=== PATIENT | male | born 1955 | race Caucasian/White ===

== ENCOUNTER → 2019-08-07 14:32 | Outpatient (CLI) | payer OTHER, SELFPAY ==
[2019-08-08 03:13] LABS: COVID19 Sendout Not Detected (Not Detect)
== END ==
PROVIDERS: Family Provider Family Medicine; PCP Family Medicine; Visit Provider Physician Assistant
DX: Z01.812 Encounter for preprocedural laboratory examination (principal)
CPT/HCPCS: 87635

== ENCOUNTER 2019-08-10 11:28 | Day surgery (SDC) | payer MEDICARE, OTHER, SELFPAY ==
[2019-08-10 12:13] VITALS: BP 145/90; PULSE 91; RESP 18; TEMP 36.8; O2SAT 95; BMI 44.2
[2019-08-10] MEDS: LACTATED RINGERS 1,000 ML 42 ML IV (12:13)
--- NOTE | 2019-08-10 12:23 | PM.PREOP ---
Pre-operative Note COVID-19 COVID-19 status: Negative Result date/Date tested (Pos, Neg/Pending): 08/07/19 Interval Note History & Physical reviewed/Exam performed by Physician: Yes Changes to H&P: No
[2019-08-10 13:20] VITALS: BP 152/89; PULSE 80; RESP 12; TEMP 36.7; O2SAT 94
--- NOTE | 2019-08-10 13:20 | PM.OP.ENDO ---
Operative Date/Time/Diagnoses Date of procedure: 08/10/19 Time of procedure: 13:21 Pre-op diagnosis: Medical high risk for colonoscopy due to morbid obesity and obstructive sleep apnea Post-op diagnosis: same (Plus diverticulosis) Procedure & Clinicians Study performed: Screening Colonoscopy Same procedure as scheduled: Yes Indications: Never had a colonoscopy, about to start prostate cancer treatment, needs to rule out colon polyps or cancers. This patient was deemed to be medically high risk for procedural sedation due to his morbid obesity and obstructive sleep apnea. Therefore we have consulted our anesthesiologist Dr. Lewis to provide monitored anesthesia care during his procedure. Surgeon: Yanely Rich Procedure Notes SCOAP/Timeout: Performed Procedure in detail: The patient was brought to the room and placed in left lateral decubitus position with all bony prominences padded. A time-out was performed and then the patient was given procedural sedation and closely monitored by Dr. Lewis. Vitals were monitored throughout the procedure and remained stable. Once adequately sedated, the procedure was begun. A rectal exam was performed revealing no abnormalities. The colonoscope was then introduced to the rectum and advanced to the cecum in the usual fashion. The cecum was identified by the appendiceal orifice, the mucosal tri-fold, and the ileocecal valve. The scope was then retracted while rotating side to side and examining each mucosal fold. Low-grade diverticulosis was seen in the left side of the colon. No other abnormalities were noted. At the conclusion of the procedure retroflexion was performed and moderate grade 1-2 internal hemorrhoids without stigmata of bleeding were seen. The scope was then withdrawn from the rectum the procedure was concluded. The patient tolerated the procedure well and was transferred to the PACU in stable condition. Scope withdrawal time: 7 Findings: diverticulosis Specimen(s): none sent Complications: none Impression: Low-grade diverticulosis Post-procedure Recommendations: Colonscopy in 10 years Follow up: as needed Disposition: PACU
--- NOTE | 2019-08-10 13:28 | SUR.PHASEII ---
Patient arrived from OR awake. Denied pain. VS stable.
[2019-08-10 13:40] VITALS: BP 152/93; PULSE 79; RESP 20; TEMP 36.7; O2SAT 93
== END 2019-08-10 14:16 | disposition home or self-care (01) ==
PROVIDERS: Family Provider Family Medicine; PCP Family Medicine; Referring Provider Surgery; Visit Provider Surgery
PROC: 0DJD8ZZ Inspection of Lower Intestinal Tract, Via Natural or Artificial Opening Endoscopic (ICD-10-PCS; CPT 45378; principal; 2019-08-10 12:45)
DX: Z12.11 Encounter for screening for malignant neoplasm of colon (principal); C61 Malignant neoplasm of prostate; E66.01 Morbid (severe) obesity due to excess calories; G47.33 Obstructive sleep apnea (adult) (pediatric); Z68.42 Body mass index [BMI] 45.0-49.9, adult; K64.0 First degree hemorrhoids; K57.30 Diverticulosis of large intestine without perforation or abscess without bleeding; R73.03 Prediabetes; K21.9 Gastro-esophageal reflux disease without esophagitis
CPT/HCPCS: G0105; J2250; J2704; J3010

== ENCOUNTER → 2019-10-24 13:53 | Outpatient (CLI) | payer MEDICARE, OTHER, SELFPAY ==
[2019-10-25 20:03] LABS: COVID19 Sendout Not Detected (Not Detect)
== END ==
PROVIDERS: Family Provider Family Medicine; PCP Family Medicine; Visit Provider Physician Assistant
DX: Z11.59 Encounter for screening for other viral diseases (principal)
CPT/HCPCS: 87635

== ENCOUNTER 2019-12-09 15:43 | Emergency (ER) | payer MEDICARE, OTHER, SELFPAY ==
[2019-12-09] VITALS (10 sets, daily range): BP systolic 192–219; BP diastolic 88–107; PULSE 86–110; RESP 24–26; TEMP 37.2; O2SAT 91–97; BMI 46.0
--- NOTE | 2019-12-09 16:07 | DI.RAD.S_ITS ---
PROCEDURE: XR CHEST 1V INDICATIONS: Fever on chemo eval for pneumonia TECHNIQUE: One view of the chest was acquired. COMPARISON: None. FINDINGS: Surgical changes and devices: None. Lungs and pleura: Lungs are clear. No pleural effusions or pneumothorax. Mediastinum: Mediastinal contours appear normal. Heart size is normal. Bones and chest wall: No suspicious bony lesions. Overlying soft tissues appear unremarkable. IMPRESSION: No pneumonia found. Dictated by: Jose So M.D. on 12/09/2019 at 16:22 Approved by: Jose So M.D. on 12/09/2019 at 16:22
[2019-12-09 16:18] LABS: Add Manual Diff / Slide Review NO; Basophils Absolute Auto 0 /uL (0-100); Basophils Percent Auto 0.2 % (0-2); Eosinophils Absolute Auto 0 /uL (0-450); Eosinophils Percent Auto 0.1 % (2-4); Hematocrit 41.9 % (41-53); Hemoglobin 14.6 g/dL (13.5-17.5); Lymphocytes Absolute Auto 300 /uL (1100-4500); Mean Corpuscular HGB Conc 34.9 % (30-36); Mean Corpuscular Hemoglobin 31.1 PG (26-34); Monocytes Absolute Auto 800 /uL (0-900); Monocytes Percent Auto 6.1 % (3-14); Neutrophils Absolute Auto 12800 /uL (1500-7000); Neutrophils Percent Auto 91.6 % (50-75); Platelet Count 251 X10^3/uL (150-400); Red Blood Cell Count 4.71 X10^6/uL (4.5-5.9); Red Cell Distribution Width 13.7 % (11.6-14.8)
[2019-12-09 16:25] LABS: Alanine Aminotransferase 24 IU/L (<50); Albumin 4.3 g/dL (3.5-5.0); Albumin Globulin Ratio 1.3 (1.0-2.8); Alkaline Phosphatase 110 U/L (38-126); Aspartate Aminotransferase 30 IU/L (17-59); BUN Creatinine Ratio 17.9 (6-22); Bilirubin Total 0.7 mg/dL (0.2-1.3); Blood Urea Nitrogen 14 mg/dL (9-20); Calcium 8.9 mg/dL (8.4-10.2); Carbon Dioxide 30 mmol/L (22-32); Chloride 101 mmol/L (98-107); Estimated Glomerular Filt Rate > 60.0 mL/min (>60); Globulin 3.3 g/dL (1.7-4.1); Glucose 132 mg/dL (80-110); HEMOLYSIS < 15 (0-50); Lipase 45 U/L (23-300); Potassium 3.8 mmol/L (3.4-5.1); Sodium 136 mmol/L (137-145); Total Protein 7.6 g/dL (6.3-8.2)
[2019-12-09] MEDS: SODIUM CHLORIDE 0.9% 1,000 ML 1000 ML IV (16:30)
[2019-12-09] MEDS: CEFEPIME 2 GM in SODIUM CHLORIDE 0.9% 100 ML 200 ML IV (16:30)
--- NOTE | 2019-12-09 16:48 | ED.GENADULT ---
HPI - General Adult General Chief complaint: Fever Stated complaint: MIGHT HAVE COVID FEVER Time Seen by Provider: 12/09/19 16:05 Source: patient Mode of arrival: Ambulatory Limitations: no limitations History of Present Illness HPI narrative: Patient is a 64-year-old male. Current medical issue of prostate cancer. He is receiving proton therapy at [facility]. His oncologist is Dr. Garcia. Patient states he had a proton therapy this morning. His he was driving home he was feeling well until he got approximately 30 minutes from home when he states he had a fairly sudden onset of not feeling well and redness of his skin. Patient was concerned that potentially he had COVID-19 as a family member of his ?rarely wears a mask he denies any fevers. No headache. He does have some right-sided sinus congestion with is not new for him. No cough. Does have a dry throat. No abdominal pain. No rashes. Related Data Home Medications Medication Instructions Recorded Confirmed fluticasone propionate 50 1 spray NASAL DAILY 08/26/17 08/10/19 mcg/actuation nasal spray,suspension trazodone 50 mg tablet 50 mg PO DAILY 08/26/17 08/10/19 Allergies Allergy/AdvReac Type Severity Reaction Status Date / Time No Known Drug Allergies Allergy Verified 12/09/19 16:02 Review of Systems Constitutional Constitutional: Reports chills and Denies headache(s) Eyes Eyes: Denies change in vision ENT Ears, Nose, Mouth, and Throat: Denies headache(s), Reports sinus pressure and Reports sore throat Cardiovascular Cardiovascular: Denies chest pain and Denies dyspnea Respiratory Respiratory: Denies cough and Denies dyspnea Gastrointestinal Gastrointestinal: Denies abdominal pain, Denies nausea and Denies vomiting Genitourinary Genitourinary: Denies dysuria Genitourinary: Denies dysuria Musculoskeletal Musculoskeletal: Denies arthralgias and Denies myalgias Integumentary/Breasts Skin/Breast: Denies rash Neurologic Neurologic: Denies behavioral changes and Denies headache(s) Psychiatric Psychiatric: Denies behavioral changes Hematologic/Lymphatic Hematologic/Lymphatic: Denies easy bleeding and Denies easy bruising Allergic/Immunologic Allergic/Immunologic: Denies urticaria Patient History Medical History Allergic rhinitis (Chronic) Colon cancer screening (Inactive) GERD (gastroesophageal reflux disease) (Chronic) Impaired fasting glucose (Acute) Insomnia, unspecified (Inactive) Morbid obesity with BMI of 45.0-49.9, adult (Chronic) Obstructive sleep apnea of adult (Chronic) Peptic ulcer disease (Inactive) Snoring (Inactive) Surgical History (Updated 08/02/19 @ 10:03 by Yanely Rich MD) History of hemorrhoidectomy (Inactive) History of inguinal hernia repair (Inactive) Social History marital status: details: ashish Lopez household members: none lives independently: Yes caregiver/support person: No occupational status: employed current occupational exposures/hazards: Yes Previous occupational history: Currently works on [employer]; 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 seatbelt use: always Smoking Status: Former smoker alcohol intake: current substance use type: does not use Smoking Status: Former smoker alcohol intake frequency: holidays/special occasions only Substance Use Type: marijuana Exam Initial Vital Signs Initial Vital Signs: Vital Signs Pulse Oximetry 95 12/09/19 15:59 Const General: cooperative, comfortable, well developed and well groomed Limitations: mental status not altered HENMT Head: normal to inspection and normocephalic Ears: hearing grossly normal bilaterally Nose: external nose normal Face and sinus: normal facial exam Resp Effort & Inspection: normal respiratory effort Auscultation: clear to auscultation bilaterally Cardio Rate: regular rate Rhythm: regular rhythm GI Inspection: non-distended Palpation: soft, No firm and No tender Skin Lesions: no lesions Rashes: no rashes Neuro General: patient alert, patient awake and patient oriented x3 Cognition: normal cognition Speech: speech normal Extrem General: normal to inspection and capillary refill normal Psych Appearance: grossly normal and well kempt Course Orders Ordered: ED Orders 12/09/19 16:01 COVID19 -ED/INPAT/OR/L&D Stat 12/09/19 16:07 XR chest 1V Stat 12/09/19 16:08 Complete Blood Count AUTO DIFF Stat Comprehensive Metabolic Panel Stat Lactate (Lactic Acid) Stat Lipase Stat Procalcitonin Stat 12/09/19 16:28 Blood Culture Stat 12/09/19 17:17 Urinalysis and Microscopic Stat Urine Culture Stat Discontinued Medications Sodium Chloride (Normal Saline 0.9%) 1,000 mls @ 1,000 mls/hr IV BOLUS ONE Stop: 12/09/19 17:05 Last Admin: 12/09/19 16:30 Dose: 1,000 mls/hr Documented by: AQUILES Cefepime HCl 2 gm/ Sodium (Chloride) 100 mls @ 200 mls/hr IV NOW ONE Stop: 12/09/19 16:07 Last Infusion: 12/09/19 17:30 Dose: 0 mls/hr Documented by: Admin: 12/09/19 16:30 Dose: 200 mls/hr Documented by: AQUILES Vital Signs Vital signs: Vital Signs - 8 hr 12/09/19 15:59 12/09/19 16:00 12/09/19 16:02 Temperature 98.9 F Pulse Rate 98 H 110 H Respiratory Rate 26 H Blood Pressure 216/107 H 219/105 H Pulse Oximetry 95 95 94 12/09/19 16:30 12/09/19 16:31 12/09/19 17:00 Temperature Pulse Rate 96 H 94 H 93 H Respiratory Rate Blood Pressure 205/96 H 206/95 H Pulse Oximetry 95 95 96 12/09/19 17:15 12/09/19 17:30 12/09/19 18:00 Temperature Pulse Rate 94 H 91 H 86 Respiratory Rate 24 24 Blood Pressure 195/90 H 195/91 H 196/88 H Pulse Oximetry 93 91 91 Medical Decision Making Medical Records Medical records reviewed: Yes I reviewed the patient's medical records. Lab Data Lab results reviewed: Yes I reviewed the patient's lab results. Result diagrams: 12/09/19 16:08 12/09/19 16:08 Labs: Lab Results 12/09/19 12/09/19 12/09/19 Range/Units 16:01 16:08 16:08 WBC 14.0 H (4.5-11.0) X10^3/uL RBC 4.71 (4.5-5.9) X10^6/uL Hgb 14.6 (13.5-17.5) g/dL Hct 41.9 (41-53) % MCV 89.0 (80-100) fL MCH 31.1 (26-34) PG MCHC 34.9 (30-36) % RDW 13.7 (11.6-14.8) % Plt Count 251 (150-400) X10^3/uL Neut % (Auto) 91.6 H (50-75) % Lymph % (Auto) 2.0 L (25-40) % Nolan % (Auto) 6.1 (3-14) % Eos % (Auto) 0.1 L (2-4) % Baso % (Auto) 0.2 (0-2) % Neut # (Auto) 66840 H (6925-2222) /uL Lymph # (Auto) 300 L (2702-0976) /uL Nolan # (Auto) 800 (0-900) /uL Eos # (Auto) 0 (0-450) /uL Baso # (Auto) 0 (0-100) /uL Sodium (137-145) mmol/L Potassium (3.4-5.1) mmol/L Chloride (98-107) mmol/L Carbon Dioxide (22-32) mmol/L BUN (9-20) mg/dL Creatinine (0.66-1.25) mg/dL Estimated GFR (>60) mL/min BUN/Creatinine Ratio (6-22) Glucose (80-110) mg/dL Lactate (0.7-2.1) mmol/L Calcium (8.4-10.2) mg/dL Total Bilirubin (0.2-1.3) mg/dL AST (17-59) IU/L ALT (<50) IU/L Alkaline Phosphatase (38-126) U/L Total Protein (6.3-8.2) g/dL Albumin (3.5-5.0) g/dL Globulin (1.7-4.1) g/dL Albumin/Globulin Ratio (1.0-2.8) Lipase (23-300) U/L Procalcitonin 0.11 (<0.5) ng/mL Urine Color Urine Appearance Urine pH (4.5-8.0) Ur Specific [place] (1.000-1.035) Urine Protein (Negative) Urine Glucose (UA) (Negative) g/dL Urine Ketones (NEGATIVE) Urine Occult Blood (Negative) Urine Nitrate (Negative) Urine Bilirubin (NEGATIVE) Urine Urobilinogen (0.2) E.U./dL Ur Leukocyte Esterase (NEGATIVE) Urine RBC (0-5/HPF) Urine WBC (0-5/HPF) Urine Bacteria (None) Ur Culture Indicated? COVID-19 PCR Negative (Negative) 12/09/19 12/09/19 12/09/19 Range/Units 16:08 16:08 17:17 WBC (4.5-11.0) X10^3/uL RBC (4.5-5.9) X10^6/uL Hgb (13.5-17.5) g/dL Hct (41-53) % MCV (80-100) fL MCH (26-34) PG MCHC (30-36) % RDW (11.6-14.8) % Plt Count (150-400) X10^3/uL Neut % (Auto) (50-75) % Lymph % (Auto) (25-40) % Nolan % (Auto) (3-14) % Eos % (Auto) (2-4) % Baso % (Auto) (0-2) % Neut # (Auto) (0195-0913) /uL Lymph # (Auto) (3888-4298) /uL Nolan # (Auto) (0-900) /uL Eos # (Auto) (0-450) /uL Baso # (Auto) (0-100) /uL Sodium 136 L (137-145) mmol/L Potassium 3.8 (3.4-5.1) mmol/L Chloride 101 (98-107) mmol/L Carbon Dioxide 30 (22-32) mmol/L BUN 14 (9-20) mg/dL Creatinine 0.78 (0.66-1.25) mg/dL Estimated GFR > 60.0 (>60) mL/min BUN/Creatinine Ratio 17.9 (6-22) Glucose 132 H (80-110) mg/dL Lactate 1.0 (0.7-2.1) mmol/L Calcium 8.9 (8.4-10.2) mg/dL Total Bilirubin 0.7 (0.2-1.3) mg/dL AST 30 (17-59) IU/L ALT 24 (<50) IU/L Alkaline Phosphatase 110 (38-126) U/L Total Protein 7.6 (6.3-8.2) g/dL Albumin 4.3 (3.5-5.0) g/dL Globulin 3.3 (1.7-4.1) g/dL Albumin/Globulin Ratio 1.3 (1.0-2.8) Lipase 45 (23-300) U/L Procalcitonin (<0.5) ng/mL Urine Color Yellow Urine Appearance Clear Urine pH 8.0 (4.5-8.0) Ur Specific [place] 1.020 (1.000-1.035) Urine Protein Negative (Negative) Urine Glucose (UA) Negative (Negative) g/dL Urine Ketones Negative (NEGATIVE) Urine Occult Blood Trace-intact (Negative) Urine Nitrate Negative (Negative) Urine Bilirubin Negative (NEGATIVE) Urine Urobilinogen 0.2 (0.2) E.U./dL Ur Leukocyte Esterase Negative (NEGATIVE) Urine RBC 5-10/hpf H (0-5/HPF) Urine WBC None seen (0-5/HPF) Urine Bacteria None seen (None) Ur Culture Indicated? Cult not indicated COVID-19 PCR (Negative) Imaging Data Chest x-ray: Radiologist's Impression: [address] [address] XRay Report Signed Patient: Spencer Hendrickson#: [id number] : 5Acct:[id number] Age/Sex: 64 / MDate of Service: 12/09/19 Loc: ED Accession Number: [id number] Procedure: XR chest 1V Ordering Provider: Deric Domingo D.O. PROCEDURE: XR CHEST 1V INDICATIONS: Fever on chemo eval for pneumonia TECHNIQUE: One view of the chest was acquired. COMPARISON: None. FINDINGS: Surgical changes and devices: None. Lungs and pleura: Lungs are clear. No pleural effusions or pneumothorax. Mediastinum: Mediastinal contours appear normal. Heart size is normal. Bones and chest wall: No suspicious bony lesions. Overlying soft tissues appear unremarkable. IMPRESSION: No pneumonia found. Dictated by: Jose So M.D. on 12/09/2019 at 16:22 Approved by: Jose So M.D. on 12/09/2019 at 16:22 [facility] Narrative Medical decision making narrative: Patient is very nontoxic appearing. He is afebrile, chest x-ray is negative, urinalysis negative, no signs of any infection on the skin. He is not having abdominal tenderness. His COVID-19 test was negative. Does have a leukocytosis. Unsure the exact etiology of this however he states that he does get frequent ?sinus infections ?and he feels that potentially he has a right-sided sinus congestion. He states that he normally treats this with flushes at home. I did discuss the case with his oncologist to did mention that potentially his proton therapy could caused flushing. He recommended that unless the specific source of infection is seen that we should hold on antibiotics. Blood cultures urine cultures are pending at the time of discharge and I did discuss this with the patient. He was given strict return precautions. He was also hypertensive upon arrival. He stated that he has had problems with blood pressure in the past. He is not currently on any blood pressure medications. He does have a blood pressure cuff at home. It did lower somewhat here in the ER. Informed him that he should take his blood pressure at home and talk with his primary doctor about this as keeping his blood pressure under control is important for self. He was given strict return precautions. He expressed understanding and agreement. Discharge Plan Departure Patient Disposition: Home Clinical Impression: Flushing Hypertension Qualifiers: Hypertension type: unspecified Qualified Code(s): I10 - Essential (primary) hypertension Leukocytosis Qualifiers: Leukocytosis type: unspecified Qualified Code(s): D72.829 - Elevated white blood cell count, unspecified Instructions: Essential Hypertension Activity Restrictions/Additional Instructions: There were blood cultures pending at the time of your discharge. If any these cultures are positive we will call you to have you return to the emergency department for further evaluation. These do take 2-3 days to result. Your blood pressure was also elevated. It is important that you take your blood pressure at home like we discussed and to follow-up with her primary provider. Keep all of your scheduled medical appointments. If you develop any new symptoms or worsening symptoms please return to the emergency department for further evaluation. Prescriptions: No Action trazodone 50 mg tablet 50 mg PO DAILY RF: 0 fluticasone propionate [Flonase Allergy Relief] 50 mcg/actuation spray,suspension 1 spray NASAL DAILY RF: 0 Referrals: Deric Deutsch MD [Primary Care Provider] -
[2019-12-09 16:51] LABS: COVID19 -Nasal RAPID Negative (Negative)
[2019-12-09 16:52] LABS: Procalcitonin 0.11 ng/mL (<0.5)
[2019-12-09 17:31] LABS: Bacteria Urine None Seen; WBC Urine None Seen (0-5/HPF)
[2019-12-09 17:32] LABS: Appearance Urine UA CLEAR; Bilirubin Urine UA NEGATIVE (NEGATIVE); Color Urine UA YELLOW; Glucose Urine UA NEGATIVE (Negative); Ketones Urine UA NEGATIVE (NEGATIVE); Leukocyte Esterase Urine UA NEGATIVE (NEGATIVE); Nitrite Urine UA NEGATIVE (Negative); Occult Blood Urine UA TRACE-INTACT (Negative); Protein Urine UA NEGATIVE (Negative); Urobilinogen Urine UA 0.2 E.U./dL (0.2)
[2019-12-09 18:19] LABS: Culture Indicated Urine Cult Not Indicated; RBC Urine 5-10/HPF (0-5/HPF)
== END 2019-12-09 18:58 | disposition home or self-care (01) ==
PROVIDERS: Emergency Provider Emergency Medicine; Family Provider Family Medicine; PCP Family Medicine
DX: R50.9 Fever, unspecified (principal); I10 Essential (primary) hypertension; D72.829 Elevated white blood cell count, unspecified; J02.9 Acute pharyngitis, unspecified
CPT/HCPCS: 36415; 71045; 80053; 81001; 83605; 83690; 84145; 85025; 87040; 87086; 87635; 96361; 96365; 99284; J0692

== ENCOUNTER → 2019-12-13 16:53 | Outpatient (CLI) | payer MEDICARE, OTHER, SELFPAY ==
--- NOTE | 2019-12-13 | DI.US.S_ITS ---
PROCEDURE: US PERIPH VENOUS LOW EXTREM LT INDICATIONS: LOCALIZED SWELLING, LLE TECHNIQUE: Real-time imaging, as well as color and pulse Doppler interrogation, were performed of the lower extremity deep veins from the inguinal ligament to the popliteal fossa. COMPARISON: None. FINDINGS: The common femoral, femoral and popliteal veins are normally compressible, and free of intraluminal thrombus. Color and pulse Doppler demonstrate normal phasic intraluminal flow. There is normal augmentation response to distal compression maneuver. IMPRESSION: Negative for deep venous thrombosis. Dictated by: Lb Dubois M.D. on 12/13/2019 at 16:59 Approved by: Lb Dubois M.D. on 12/13/2019 at 16:59
== END ==
PROVIDERS: Family Provider Family Medicine; PCP Family Medicine; Referring Provider Family Medicine; Visit Provider Family Medicine
DX: R22.42 Localized swelling, mass and lump, left lower limb (principal)
CPT/HCPCS: 93971

== ENCOUNTER 2020-01-27 15:55 | Emergency (ER) | payer MEDICARE, OTHER, SELFPAY ==
[2020-01-27] VITALS (13 sets, daily range): BP systolic 132–169; BP diastolic 62–92; PULSE 63–85; RESP 15–25; TEMP 36.4; O2SAT 93–98; BMI 46.0
--- NOTE | 2020-01-27 16:10 | DI.RAD.S_ITS ---
PROCEDURE: XR WRIST RT MIN 3V INDICATIONS: trauma/fall TECHNIQUE: A total of 3 views of the wrist were acquired. COMPARISON: None. FINDINGS: Bones: No dislocations. No suspicious bony lesions. There is a mildly impacted intra-articular fracture involving the distal radius, without evidence of ulna fracture or carpal fracture associated. Fracture planes are longitude only oriented and in gross anatomic alignment. Scaphoid view: Not obtained but the scaphoid visualized appears normal Soft tissues: No suspicious soft tissue calcifications. IMPRESSION: Gross anatomic alignment maintained after intra-articular fracture with mild impaction at the distal radius. No additional fracture found. Dictated by: Jose So M.D. on 01/27/2020 at 17:04 Approved by: Jose So M.D. on 01/27/2020 at 17:05
--- NOTE | 2020-01-27 16:10 | DI.RAD.S_ITS ---
PROCEDURE: XR SHOULDER RT MIN 2V INDICATIONS: trauma/fall TECHNIQUE: 3 views of the shoulder were acquired. COMPARISON: None. FINDINGS: Bones: No dislocations. No suspicious bony lesions. Visualized ribs appear intact. There is distortion of the distal clavicle, to the degree that a fracture in this area is suspected but not clearly visualized. Soft tissues: No suspicious soft tissue calcifications. IMPRESSION: Distal clavicular fracture is strongly suspected but cannot be clearly visualized as a discrete entity. Additional imaging including CT scanning may become necessary. Dictated by: Jose So M.D. on 01/27/2020 at 17:03 Approved by: Jose So M.D. on 01/27/2020 at 17:04
--- NOTE | 2020-01-27 16:10 | DI.RAD.S_ITS ---
PROCEDURE: XR ELBOW RT MIN 3V INDICATIONS: trauma/fall TECHNIQUE: 3 views of the elbow were acquired. COMPARISON: None. FINDINGS: Bones: No dislocations. No suspicious bony lesions. There is a transverse fracture involving the radial neck, with moderate joint effusion. Slight impaction at the fracture plane is present. The articular surface of the radial head is not displaced or fractured. Soft tissues: No elbow joint effusion. No suspicious soft tissue calcifications. IMPRESSION: Near anatomic alignment maintained after fracture of the radial neck without fracture seen extending into the articular surface of the proximal radius. Secondary joint effusion, as expected. Dictated by: Jose So M.D. on 01/27/2020 at 16:59 Approved by: Jose So M.D. on 01/27/2020 at 17:00
[2020-01-27 16:22] LABS: Add Manual Diff / Slide Review NO; Basophils Absolute Auto 100 /uL (0-100); Basophils Percent Auto 0.8 % (0-2); Eosinophils Absolute Auto 100 /uL (0-450); Eosinophils Percent Auto 1.2 % (2-4); Hematocrit 40.9 % (41-53); Hemoglobin 14.2 g/dL (13.5-17.5); Lymphocytes Absolute Auto 800 /uL (1100-4500); Lymphocytes Percent Auto 8.6 % (25-40); Mean Corpuscular HGB Conc 34.6 % (30-36); Mean Corpuscular Hemoglobin 31.6 PG (26-34); Mean Corpuscular Volume 91.4 fL (80-100); Monocytes Absolute Auto 800 /uL (0-900); Monocytes Percent Auto 8.7 % (3-14); Neutrophils Absolute Auto 7700 /uL (1500-7000); Neutrophils Percent Auto 80.7 % (50-75); Platelet Count 295 X10^3/uL (150-400); Red Blood Cell Count 4.48 X10^6/uL (4.5-5.9); White Blood Cell Count 9.5 X10^3/uL (4.5-11.0)
[2020-01-27 16:30] LABS: INR 1.1 (0.9-1.3); Prothrombin Time 12.5 SECONDS (10.1-12.7)
[2020-01-27 16:36] LABS: Alanine Aminotransferase 20 IU/L (<50); Albumin 3.9 g/dL (3.5-5.0); Albumin Globulin Ratio 1.2 (1.0-2.8); Alkaline Phosphatase 91 U/L (38-126); Aspartate Aminotransferase 29 IU/L (17-59); Bilirubin Total 0.4 mg/dL (0.2-1.3); Blood Urea Nitrogen 17 mg/dL (9-20); Calcium 8.8 mg/dL (8.4-10.2); Carbon Dioxide 29 mmol/L (22-32); Chloride 103 mmol/L (98-107); Estimated Glomerular Filt Rate > 60.0 mL/min (>60); Globulin 3.3 g/dL (1.7-4.1); Glucose 185 mg/dL (80-110); HEMOLYSIS < 15 (0-50); Potassium 4.1 mmol/L (3.4-5.1); Sodium 136 mmol/L (137-145); Total Protein 7.2 g/dL (6.3-8.2)
[2020-01-27] MEDS: TET,DIPH,PERTUSS(ACELL),VAC/PF 0.5 ML SYRINGE IM (16:44)
--- NOTE | 2020-01-27 17:34 | DI.CT.S_ITS ---
PROCEDURE: CT UE RT WO CON INDICATIONS: ? clavicle fx on xray TECHNIQUE: Noncontrast 1-1.5 mm thick sections acquired from the acromioclavicular joint to the inferior scapula, with coronal and sagittal reformatting. COMPARISON: None. FINDINGS: Image quality: Excellent. Bones: No fracture or dislocation. Moderate degenerative change at the acromioclavicular joint with hypertrophy. Mild degenerative change at the glenohumeral joint. Soft tissues: No hematoma. No adenopathy. IMPRESSION: No fracture or dislocation. Dictated by: Chandra Cohen M.D. on 01/27/2020 at 19:06 Approved by: Chandra Cohen M.D. on 01/27/2020 at 19:09
[2020-01-27] MEDS: HYDROCODONE/ACET 5/325 TABLET 1 TAB PO (18:48)
[2020-01-27] MEDS: BACITRACIN OINT 0.9 GM PCKT 1 APPLIC TOP (19:46)
[2020-01-27] MEDS: MORPHINE 4 MG/ML INJ IV (19:59)
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
== END 2020-01-27 20:54 | disposition home or self-care (01) ==
PROVIDERS: Emergency Provider Nurse Practitioner Family; Family Provider Family Medicine; PCP Family Medicine
DX: S52.501A Unspecified fracture of the lower end of right radius, initial encounter for closed fracture (principal); S52.134A Nondisplaced fracture of neck of right radius, initial encounter for closed fracture; S30.811A Abrasion of abdominal wall, initial encounter; S50.311A Abrasion of right elbow, initial encounter; S60.511A Abrasion of right hand, initial encounter; Y04.2XXA Assault by strike against or bumped into by another person, initial encounter; Z23 Encounter for immunization
CPT/HCPCS: 29105; 36415; 73030; 73080; 73110; 73200; 80053; 85025; 85610; 90471; 93005; 93010; 96374; 99284; STOP; 90715; J2270

== ENCOUNTER → 2022-01-07 12:52 | Outpatient (CLI) | payer MEDICARE, OTHER, SELFPAY ==
--- NOTE | 2022-01-09 13:34 | DIAB.INIT ---
Initial Diabetes Education Assessment Name: Spencer Hendrickson Date: 01/07/22 Time: 1-2p Dx: Type II Diabetes Provider: Krish Vasquez presents today for initial visit regarding new dx of T2DM. He recently attended the community health diabetes class provided by this RD/[facility]. Reports I am not good at cooking. States he is considering a meal delivery system. Current options discussed were financially not feasible. Furthermore, programs are often offering foods high in Na. Reviewed pros/cons of a meal delivery program. Currently taking Ozempic. States he thinks he was not getting the full dose due to not priming the pen. Reports after figuring out how to inject, he has felt a decrease in appetite and changes in his urine (was previously darker in color). States his eating schedule is often erratic. Endorses a lot of take-out and frozen convenience foods. Wears a cpap. Since diagnosis of DM states he sleeps significantly more. Was 4-5 hours per night, now up to 12 hours. Anthropometrics: Ht: 6' Wt: 341# per referral Physical Activity: No program. Bought a pedometer. Lives by [place] [employer]. Started walking but realized the knee pain was too great. States he needs a knee replacement. Has a rowing machine at home he is interested in starting. Self-Monitoring Blood Glucose: Checking BG up to 4-5 x per day. Has been worried about BG over 120 mg/dL. States he has been checking at different times, but he has not labeled them in his log book. Unclear which readings are ac vs pc. Endorses checking some FBG and some pc. All BG <150mg/dL. 12/31: 148, 146, 86, 88 112: 95, 97, 113 3: 99, 100 4: 130, 112 115: 96 117: 96, 108 8: 104 Diabetes Medications: 1000mg Metformin BID Ozempic 25mg weekly Pertinent Labs: HgA1c 10% 09/2021 Past Medical History: (Last Reviewed 04/16/20 @ 10:03 by Loi Woodson MD) Allergic rhinitis Colon cancer screening GERD (gastroesophageal reflux disease) Impaired fasting glucose Insomnia, unspecified inactive whilst on CPAP Morbid obesity with BMI of 45.0-49.9, adult Obstructive sleep apnea of adult Peptic ulcer disease Snoring inactive whilst on CPAP Intervention: This participant was very receptive. Provided appropriate educational handouts. Discussed the following topics: Completed intake assessment. Discussed barriers to care. Pathophysiology of type 2 diabetes HgA1c, its correlation to blood glucose numbers, and rationale for goal Importance of self-monitoring, how often, and when to check. Suggested checking at different times to evaluate meals Meal delivery pros/cons Heart health: sodium Plate Method, impact of macronutrients on blood sugar General recommended servings for carbohydrates at meals and snacks Role of physical activity and following provider guidelines for safety Created SMART goals for patient self-care and success. Goals: Start rowing machine Label blood sugars with FBG or 1-2 hour pc Follow-up: [facility] follow-up in 2-3 weeks. Will review nutrition in detail and build a plan next visit. Roberta Bullard RDN, [facility] Certified Diabetes Care and Electronic Instrument Trades Worker P: [phone] Thank you for this referral
== END ==
PROVIDERS: Family Provider Family Medicine; PCP Family Medicine; Referring Provider Family Medicine; Visit Provider Family Medicine
DX: E11.9 Type 2 diabetes mellitus without complications (principal); Z79.84 Long term (current) use of oral hypoglycemic drugs; Z79.85 Long-term (current) use of injectable non-insulin antidiabetic drugs; Z71.3 Dietary counseling and surveillance
CPT/HCPCS: G0108

== ENCOUNTER → 2022-01-27 11:04 | Outpatient (CLI) | payer MEDICARE, OTHER, SELFPAY ==
[2022-01-27 12:48] LABS: Hemoglobin A1C% w Est Avg Glu 6.3 % (4.0-6.0)
[2022-01-27 19:57] LABS: Creatinine Urine Random 286.7 mg/dL
[2022-01-27 20:02] LABS: Microalbumi Creatinin Ratio Ur 24.7 ug/mg CR (<30); Microalbumin Urine Random 7.1 mg/dL (0-1.6)
== END ==
PROVIDERS: Family Provider Family Medicine; PCP Family Medicine; Referring Provider Family Medicine; Visit Provider Family Medicine
DX: E11.65 Type 2 diabetes mellitus with hyperglycemia (principal)
CPT/HCPCS: 36415; 82043; 82570; 83036

== ENCOUNTER → 2022-01-29 10:59 | Outpatient (CLI) | payer MEDICARE, OTHER, SELFPAY ==
--- NOTE | 2022-02-12 13:31 | DIAB.MNT ---
Initial Diabetes Medical Nutrition Therapy Assessment Name: Spencer Hendrickson Date: 01/29/22 Time: 1105-7630a Dx: Type II Diabetes Provider: Krish Vasquez presents for DM follow-up. Big improvement with recent hgA1c, down to 6.3%. Still worries he is injecting Ozempic incorrectly. Worries about effectiveness. Has had weight loss and reduction in HgA1c. Seems to be working well. Reports frustrations with BG checks. States they are so variable even in the same minute of checking. Also sick of finger pricks. Wants a freestyle angel. Checking BG 6x per day with most seemingly in goal reported. Reports eating times are so variable. Limited vegetable intake. Does not cook. Breakfast often high CHO with cereal options. Feels he needs easy meal ideas. Anthropometrics: Ht: 6' Wt: 337# today (down 4# from previous visit) Physical Activity: tried rowing machine. Had left arm pain. Wants to walk park, but knee pain is a barrier. Thinks he needs a knee replacement but has not spoken to a specialist recently. Plans to do so. Self-Monitoring Blood Glucose: FBG 130-140mg/dl or less. Later in the day up to 185 mg/dL. he is unclear about why there is variability in finger sticks. Has questions about hypoglycemia and BG goals. Did not bring BG log today. Diabetes Medications: 1000mg Metformin BID Ozempic 25mg weekly Pertinent Labs: HgA1c: 6.3% 12/2021 ; 10% 09/2021 Past Medical History: (Last Reviewed 04/16/20 @ 10:03 by Loi Woodson MD) Allergic rhinitis Colon cancer screening GERD (gastroesophageal reflux disease) Impaired fasting glucose Insomnia, unspecified inactive whilst on CPAP Morbid obesity with BMI of 45.0-49.9, adult Obstructive sleep apnea of adult Peptic ulcer disease Snoring inactive whilst on CPAP Nutrition Rx: Plate Method Nutrition Diagnosis: - Nutrition and food related knowledge deficit r/t no previous cooking/nutrition education aeb pt report - Physical inactivity r/t knee pain aeb pt report - Predicted inadequate fiber intake r/t limited whole grains and vegetables aeb diet recall and pt report Intervention: This participant was very receptive. Provided appropriate educational handouts. Discussed the following topics: Self monitoring BG. No need for more than 1-2 checks. Based on hgA1c BG seem to be much improved and Ozempic seems to be going well. Reliability of meters vs CGM Review of BG goals Review of low risk for hypoglycemia and discussed s/s of lows Ways to easily increase veggie intake. Easy to prep meals Plate Method Recommended servings for carbohydrates at meals and snacks Role of physical activity, barriers for activity and plan Created SMART goals for patient self-care and success. 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 Pedro would like to reschedule after seeing a knee specialist. This RDN will follow-up by phone call in one month to check-in. Roberta Bullard RDN, [facility] Certified Diabetes Care and Telephone Order Supervisor P: [phone] Thank you for this referral
== END ==
PROVIDERS: Family Provider Family Medicine; PCP Family Medicine; Referring Provider Family Medicine; Visit Provider Family Medicine
DX: E11.9 Type 2 diabetes mellitus without complications (principal); Z79.84 Long term (current) use of oral hypoglycemic drugs; Z79.85 Long-term (current) use of injectable non-insulin antidiabetic drugs; Z71.3 Dietary counseling and surveillance
CPT/HCPCS: 97802

== ENCOUNTER → 2022-06-24 12:46 | Outpatient (CLI) | payer MEDICARE, OTHER, SELFPAY ==
--- NOTE | 2022-07-09 16:13 | DIAB.MNTFU ---
Follow-up Diabetes Medical Nutrition Therapy Assessment Name: Spencer Hendrickson Date: 06/24/22 Time: 1-145p Dx: Type II Diabetes Provider: Krish Vasquez presents today for Dm follow-up. Reports things are going very well. States his main goal is weight loss, and he plans to chat with PCP about increasing Ozempic (for weight loss purposes, HgA1c around 5% per pt report). Admits that he would like to do as little as possible to manage weight and DM-- prefers to manage with meds. 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 Has questions about keto versus Mediterranean diet. Diet Recall: B: coffee and cereal with banana snack: corn chips D: [employer] premade meals Has been utilizing [employer]. Meals seem low in carb. Moderately high in sodium. Anthropometrics: Ht: 6' Wt: 343# today Wt: 337# 01/29/22 up 6# since last visit Physical Activity: Continues to have knee pain as a barrier. 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 wants to try [employer] machine again. Self-Monitoring Blood Glucose: None recently. Plans to restart if HgA1c increases. Diabetes Medications: 1000mg Metformin BID Ozempic 0.5mg weekly Pertinent Labs: HgA1c: reports last hgA1c of 5%, will fax PCP for recent labs. 6.3% 12/2021 ; 10% 09/2021 Past Medical History: (Last Reviewed 04/16/20 @ 10:03 by Loi Woodson MD) Allergic rhinitis Colon cancer screening GERD (gastroesophageal reflux disease) Impaired fasting glucose Insomnia, unspecified inactive whilst on CPAP Morbid obesity with BMI of 45.0-49.9, adult Obstructive sleep apnea of adult Peptic ulcer disease Snoring inactive whilst on CPAP Nutrition Rx: Plate Method Nutrition Diagnosis: - Nutrition and food related knowledge deficit r/t no previous cooking/nutrition education aeb pt report - Physical inactivity r/t knee pain aeb pt report - Predicted inadequate fiber intake r/t limited whole grains and vegetables aeb diet recall and pt report Intervention: This participant was very receptive. Provided appropriate educational handouts. Discussed the following topics: Easy prep meals with added veggies Pairing carb and pro HgA1c goals Keto vs Med diet premade meals nutrition Heart health: sodium, fiber Physical activity barriers and plan Created SMART goals for patient self-care and success. 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 Pedro would like to call for follow-up prn. Roberta Bullard RDN, [facility] Certified Diabetes Care and [place] [employer] P: [phone] Thank you for this referral
== END ==
PROVIDERS: Absent Provider Family Medicine; Family Provider Family Medicine; PCP Family Medicine; Referring Provider Family Medicine; Visit Provider Family Medicine
DX: E11.9 Type 2 diabetes mellitus without complications (principal); Z79.84 Long term (current) use of oral hypoglycemic drugs; Z79.85 Long-term (current) use of injectable non-insulin antidiabetic drugs; Z71.3 Dietary counseling and surveillance
CPT/HCPCS: 97803

== ENCOUNTER → 2023-08-19 09:23 | Outpatient (CLI) | payer MEDICARE, OTHER, SELFPAY ==
--- NOTE | 2023-08-19 09:26 | DI.US.S_ITS ---
PROCEDURE: US ABD AORTA ANEURYSM SCREEN INDICATIONS: Former smoker TECHNIQUE: Real time scanning was performed of the aorta and iliac arteries, with image documentation. COMPARISON: None. FINDINGS: Aorta: Proximal aortic diameter measures 2.8 cm. Mid-aorta measures 1.9 cm. Distal aortic diameter is 2 cm. Iliac arteries: Right common iliac artery measures 1.4 cm. Left common iliac artery measures 1.4 cm. Note is made of a cyst within the left lobe of the liver that measures 7.5 x 6 5 x 9.3 cm. IMPRESSION: Negative for aneurysm. Large left liver cyst incidentally noted, measuring up to 9.3 cm. Dictated by: Lb Dubois M.D. on 08/19/2023 at 9:55 Approved by: Lb Dubois M.D. on 08/19/2023 at 9:56
== END ==
PROVIDERS: Family Provider Family Medicine; PCP Family Medicine; Referring Provider Family Medicine; Visit Provider Family Medicine
DX: Z13.6 Encounter for screening for cardiovascular disorders (principal); Z87.891 Personal history of nicotine dependence
CPT/HCPCS: 76706